=== PATIENT | male | born 1980 | race African-American/Black ===

== ENCOUNTER 2016-07-15 05:15 | Observation (INO) | payer OTHER ==
[~2016-07-15] VITALS: Ht 182.9 cm; Wt 107.6 kg
[~2016-07-15 05:15] MED LIST: BACTRIM,SEPT1 TABLET PO; NAPROSYN500 MG PO; NORCO 5/3251 TABLET PO
[2016-07-15 06:13] LABS: HEMATOCRIT 39.9 % (38.0-50.0); MCH 28.8 PG (29.0-34.0); MCHC 33.3 G/DL (30.0-36.0); MCV 86.4 FL (86-99); MEAN PLAT.VOLUME 12.3 uM^3 (9.0-12.4); PLATELET COUNT 174 K/uL (156-360); RBC DIS.WIDTH-CV 14.2 % (11.8-14.6); RED BLOOD COUNT 4.62 M/uL (4.00-5.50); WHITE BLOOD COUNT 6.5 K/uL (4.1-10.2)
[2016-07-15 06:28] LABS: CHLORIDE 107 mEq/L (99-109); POTASSIUM 4.3 mEq/L (3.7-5.4); SODIUM 141 mEq/L (136-147)
[2016-07-15 06:30] LABS: GLUCOSE 98 mg/dL (70-99)
[2016-07-15 06:31] LABS: ANION GAP 10 MEQ/L (2-14)
[2016-07-15 06:32] LABS: TOTAL BILIRUBIN 0.3 mg/dL (0.0-1.0)
[2016-07-15 06:34] LABS: ALKALINE PHOSPHATASE 95 IU/L (3-129); GFR ESTIMATE (CALCULATED) > 59 mL/min/; TROP-I INTERPRETATION NEGATIVE; TROPONIN-I < 0.01 ng/mL (0.0-0.30)
[2016-07-15 06:35] LABS: UREA NITROGEN (BUN) 22 mg/dL (9-23)
[2016-07-15 06:37] LABS: LIPASE 49 U/L (1.0-51.0)
[2016-07-15] MEDS ORDERED: NAPROSYN500 MG PO (06:45)
[2016-07-15 07:15] LABS: D-DIMER ELISA 0.24 mg/L FEU (< 0.57)
[2016-07-15 07:20] LABS: C-REACTIVE PROTEIN 2.5 MG/L (0-10)
[2016-07-15 08:19] LABS: ERTH.SED.RATE 12 MM/HR (0-15)
[2016-07-15 08:53] VITALS: BP 100/63
[2016-07-15 09:02] LABS: TROP-I INTERPRETATION NEGATIVE; TROPONIN-I < 0.01 ng/mL (0.0-0.30)
[2016-07-15 09:12] LABS: HDL CHOLESTEROL 41 MG/DL (Desirable>=40); LDL CHOLESTEROL 114 mg/dL (Desirable<100); NON-HDL CHOLESTEROL 140 mg/dL (Desirable<160); SERUM ETHYL ALCOHOL < 10 mg/dL; TOTAL CHOLESTEROL 181 mg/dL (Desirable<200); TRIGLYCERIDES 129 MG/DL (Normal: <150)
[2016-07-15 11:54] LABS: ADD MIUA? NO; BILIRUBIN NEGATIVE; BLOOD NEGATIVE; COLOR YELLOW ((YELLOW)); GLUCOSE (STRIP) NEGATIVE; KETONES NEGATIVE; LEUKOCYTES NEGATIVE; NITRITE NEGATIVE; PH, URINE 5.5 (5-8); PROTEIN (STRIP) NEGATIVE; SPECIFIC GRAVITY 1.026 (1.000-1.030); UCUL ADDED? NO; UROBILINOGEN 0.2 MG/DL (0.2-1.0)
[2016-07-15 12:04] LABS: AMPHETAMINES QUANT VALUE 0 NG/ML; BARBITUATES QUANT VALUE 0 NG/ML; BENZODIAZEPINES QUANT VALUE 0 NG/ML; BENZODIAZEPINES, URINE SCREEN Negative (200 ng/mL)
[2016-07-15 12:17] VITALS: BP 101/58
[2016-07-15 13:01] LABS: TROP-I INTERPRETATION NEGATIVE; TROPONIN-I < 0.01 ng/mL (0.0-0.30)
[2016-07-15 16:15] VITALS: BP 107/56
[2016-07-15 19:01] LABS: TROP-I INTERPRETATION NEGATIVE; TROPONIN-I < 0.01 ng/mL (0.0-0.30)
== END 2016-07-15 19:39 | disposition home or self-care (01) ==
LOC: EME 05:15 → EDOF 07:54 → 5WEST 08:42
PROVIDERS: Emergency Medicine; Hospitalist; Physician Assistant Medical
DX: R07.89 Other chest pain (principal); R94.31 Abnormal electrocardiogram [ECG] [EKG]; F17.200 Nicotine dependence, unspecified, uncomplicated; F12.10 Cannabis abuse, uncomplicated
CPT/HCPCS: 71020; 80053; 80061; 81003; 83690; 84484; 85027; 85379; 85651; 86140; 93005; 99281; 99285; G0378; G0480; J1885; J2060; J2270; S0028

== ENCOUNTER 2016-10-19 01:59 | Emergency (ER) | payer OTHER ==
[~2016-10-19] VITALS: Ht 180.3 cm; Wt 105.5 kg
[2016-10-19] MEDS ORDERED: KEFLEX500 MG PO (03:45)
[2016-10-19] MEDS ORDERED: PERCOCET 5/31 TABLET PO (03:47)
[2016-10-19 03:58] VITALS: BP 141/102
== END 2016-10-19 03:59 | disposition home or self-care (01) ==
LOC: EME 01:59
PROC: 0H9GXZZ Drainage of Left Hand Skin, External Approach (ICD-10-PCS; principal; 2016-10-19)
DX: L03.012 Cellulitis of left finger (principal)
CPT/HCPCS: 87070; 87075; 87077; 87147; 87186; 87205; 99281; 99284

== ENCOUNTER 2016-10-21 17:09 | Emergency (ER) | payer OTHER ==
[~2016-10-21] VITALS: Ht 180.3 cm; Wt 107.0 kg
[~2016-10-21 17:09] MED LIST changes: +KEFLEX500 MG PO; +PERCOCET 5/31 TABLET PO
[2016-10-21] MEDS ORDERED: PERCOCET 5/31 TABLET PO (17:36)
[2016-10-21 18:42] VITALS: BP 128/77
== END 2016-10-21 18:44 | disposition home or self-care (01) ==
LOC: EME 17:09
DX: Z48.01 Encounter for change or removal of surgical wound dressing (principal); L02.512 Cutaneous abscess of left hand; F17.200 Nicotine dependence, unspecified, uncomplicated
CPT/HCPCS: 99281; 99283

== ENCOUNTER 2017-02-22 13:30 | Emergency (ER) | payer OTHER ==
[~2017-02-22] VITALS: Ht 182.9 cm; Wt 105.4 kg
[2017-02-22 15:29] VITALS: BP 115/64
== END 2017-02-22 15:30 | disposition home or self-care (01) ==
LOC: EME 13:30
PROC: 2W2KX4Z Dressing of Left Finger using Bandage (ICD-10-PCS; principal; 2017-02-22)
DX: T23.232A Burn of second degree of multiple left fingers (nail), not including thumb, initial encounter (principal); T31.0 Burns involving less than 10% of body surface; X08.8XXA Exposure to other specified smoke, fire and flames, initial encounter; F17.210 Nicotine dependence, cigarettes, uncomplicated
CPT/HCPCS: 99281; 99283